=== PATIENT | female | born 1945 | race Asian ===

== ENCOUNTER 2017-06-30 16:04 | Emergency (ER) | payer MEDICARE ==
[~2017-06-30] VITALS: Ht 149.9 cm; Wt 57.6 kg
[~2017-06-30 16:04] MED LIST: ASPI1CPM9 PO; ATEN50TA41 PO; ATOR-2 PO; ATOR40TA78 PO; CYCL7.5T25 PO; HYDR1TAB16 PO; IBUP200C8 PO; NAPR220C2 PO; OXYC1TAB7 PO; TEMA15CA PO; TEMA7.5C PO; [UNRECOGNIZED DRUG - REMARK]
[2017-06-30 16:44] LABS: BASOPHILS # (AUTO) 0.03 x10^3/uL (0-0.1); BASOPHILS % (AUTO) 0 % (0-1); EOSINOPHILS # (AUTO) 0.07 x10^3/uL (0-0.4); EOSINOPHILS % (AUTO) 1 % (1-7); LYMPHOCYTES # (AUTO) 1.15 x10^3/uL (1-3.4); LYMPHOCYTES % (AUTO) 11 % (22-44); MD NO; MEAN CORPUSCULAR HEMOGLOBIN 22.5 pg (27.0-34.8); MEAN CORPUSCULAR VOLUME 70.4 fL (80-100); MEAN PLATELET VOLUME 8.1 fL (7.4-10.4); MONOCYTES # (AUTO) 0.41 x10^3/uL (0.2-0.8); MONOCYTES % (AUTO) 4 % (2-9); NEUTROPHILS # (AUTO) 8.98 x10^3/uL (1.8-6.8); NEUTROPHILS % (AUTO) 84 % (42-75); PLATELET COUNT 304 x10^3/uL (130-400); RED BLOOD COUNT 6.15 x10^6/uL (3.82-5.3); RED CELL DISTRIBUTION WIDTH 15.4 % (9.6-15.2)
[2017-06-30 16:55] LABS: ALANINE AMINOTRANSFERASE 36 U/L (12-78); ALBUMIN 4.3 g/dL (3.4-5.0); ANION GAP 10 mmol/L (5-15); CALCIUM 9.1 mg/dL (8.5-10.1); CHLORIDE 101 mmol/L (98-107); CREATININE 0.81 mg/dL (0.55-1.02)
[2017-06-30 16:57] LABS: ALKALINE PHOSPHATASE 83 U/L (45-117); BILIRUBIN,TOTAL 0.3 mg/dL (0.2-1.0); TOTAL PROTEIN 9.1 g/dL (6.4-8.2)
[2017-06-30 18:06] LABS: MICROSCOPIC AUTO
[2017-06-30 18:07] LABS: CULTURE INDICATED? NO
[2017-06-30] MEDS ORDERED: ACETAMINOPHEN 325 MG TABLET ONE (19:18)
[2017-06-30] MEDS ORDERED: TRAZ300T2 PO (19:26)
[2017-06-30] MEDS ORDERED: ACETAMINOPHEN 325 MG TABLET PO ONE (19:30)
[2017-06-30 21:15] VITALS: BP 109/73
== END 2017-06-30 21:17 | disposition home or self-care (01) ==
LOC: ED 21:01
DX: R33.9 Retention of urine, unspecified (principal); E78.5 Hyperlipidemia, unspecified; I10 Essential (primary) hypertension
CPT/HCPCS: 36415; 51702; 74018; 80053; 81001; 85025; 99285

== ENCOUNTER 2017-07-01 13:29 | Emergency (ER) | payer MEDICARE ==
[~2017-07-01] VITALS: Ht 149.9 cm; Wt 55.4 kg
[~2017-07-01 13:29] MED LIST changes: +TRAZ300T2 PO
[2017-07-01 13:43] VITALS: BP 133/82
== END 2017-07-01 13:58 | disposition left against medical advice (07) ==
LOC: ED 13:52
DX: Z46.6 Encounter for fitting and adjustment of urinary device (principal); Z53.21 Procedure and treatment not carried out due to patient leaving prior to being seen by health care provider

== ENCOUNTER 2017-07-02 18:19 | Emergency (ER) | payer MEDICARE ==
[~2017-07-02] VITALS: Ht 149.9 cm; Wt 57.0 kg
[2017-07-02 18:23] VITALS: BP 146/84
[2017-07-02] MEDS ORDERED: KETOROLAC 30 MG/1 ML IM ONE (19:00)
[2017-07-02 19:07] LABS: ALBUMIN 3.9 g/dL (3.4-5.0); ANION GAP 6 mmol/L (5-15); CALCIUM 8.3 mg/dL (8.5-10.1); CHLORIDE 105 mmol/L (98-107)
[2017-07-02 19:09] LABS: CULTURE INDICATED? YES; MICROSCOPIC INDICATED
[2017-07-02 19:12] LABS: ALANINE AMINOTRANSFERASE 26 U/L (12-78); ALKALINE PHOSPHATASE 66 U/L (45-117); BILIRUBIN,TOTAL 0.3 mg/dL (0.2-1.0); CREATININE 0.81 mg/dL (0.55-1.02); TOTAL PROTEIN 8.1 g/dL (6.4-8.2)
[2017-07-02 19:31] LABS: BASOPHILS # (AUTO) 0.01 x10^3/uL (0-0.1); BASOPHILS % (AUTO) 0 % (0-1); EOSINOPHILS # (AUTO) 0.17 x10^3/uL (0-0.4); EOSINOPHILS % (AUTO) 2 % (1-7); LYMPHOCYTES # (AUTO) 1.19 x10^3/uL (1-3.4); LYMPHOCYTES % (AUTO) 17 % (22-44); MD NO; MEAN CORPUSCULAR HEMOGLOBIN 22.7 pg (27.0-34.8); MEAN CORPUSCULAR VOLUME 70.9 fL (80-100); MEAN PLATELET VOLUME 8.2 fL (7.4-10.4); MONOCYTES # (AUTO) 0.77 x10^3/uL (0.2-0.8); MONOCYTES % (AUTO) 11 % (2-9); NEUTROPHILS # (AUTO) 4.93 x10^3/uL (1.8-6.8); NEUTROPHILS % (AUTO) 70 % (42-75); PLATELET COUNT 278 x10^3/uL (130-400); RED BLOOD COUNT 5.64 x10^6/uL (3.82-5.3); RED CELL DISTRIBUTION WIDTH 14.8 % (9.6-15.2)
[2017-07-02] MEDS ORDERED: KETOROLAC 30 MG/1 ML ONE (19:43)
[2017-07-02] MEDS ORDERED: OMNIPAQUE 350 MG/ML, 100ML BOTTLE ONE (19:56)
== END 2017-07-02 22:34 | disposition home or self-care (01) ==
LOC: ED 18:58
DX: R31.0 Gross hematuria (principal); R33.9 Retention of urine, unspecified; I10 Essential (primary) hypertension; E78.5 Hyperlipidemia, unspecified; Z90.710 Acquired absence of both cervix and uterus; Z90.10 Acquired absence of unspecified breast and nipple
CPT/HCPCS: 36415; 74176; 80053; 81001; 85025; 87086; 96372; 99285; J1885; Q9967

== ENCOUNTER 2017-10-05 21:18 | Emergency (ER) | payer MEDICARE ==
[~2017-10-05] VITALS: Ht 152.4 cm; Wt 57.0 kg
[2017-10-05 22:26] LABS: MICROSCOPIC AUTO
[2017-10-05 22:28] LABS: CULTURE INDICATED? YES
[2017-10-05 22:33] LABS: ANION GAP 7 mmol/L (5-15); CALCIUM 8.8 mg/dL (8.5-10.1); CHLORIDE 107 mmol/L (98-107); CREATININE 0.91 mg/dL (0.55-1.02)
[2017-10-05 22:34] LABS: BASOPHILS % (AUTO) 0 % (0-1); EOSINOPHILS # (AUTO) 0.29 x10^3/uL (0-0.4); EOSINOPHILS % (AUTO) 5 % (1-7); LYMPHOCYTES # (AUTO) 1.43 x10^3/uL (1-3.4); LYMPHOCYTES % (AUTO) 25 % (22-44); MD NO; MEAN CORPUSCULAR HEMOGLOBIN 22.5 pg (27.0-34.8); MEAN CORPUSCULAR HGB CONC 32.2 g/dL (32.4-35.8); MEAN CORPUSCULAR VOLUME 69.8 fL (80-100); MEAN PLATELET VOLUME 8.3 fL (7.4-10.4); MONOCYTES # (AUTO) 0.53 x10^3/uL (0.2-0.8); MONOCYTES % (AUTO) 9 % (2-9); NEUTROPHILS # (AUTO) 3.56 x10^3/uL (1.8-6.8); NEUTROPHILS % (AUTO) 61 % (42-75); PLATELET COUNT 285 x10^3/uL (130-400); RED BLOOD COUNT 5.84 x10^6/uL (3.82-5.3); RED CELL DISTRIBUTION WIDTH 15.1 % (9.6-15.2)
[2017-10-05 22:35] VITALS: BP 157/91
[2017-10-05 22:37] LABS: TROPONIN I < 0.015 ng/mL (0.000-0.045)
[2017-10-05] MEDS ORDERED: DIAZEPAM 5 MG TABLET ONE (23:20)
[2017-10-05] MEDS ORDERED: ACETAMINOPHEN 325 MG TABLET ONE (23:20)
[2017-10-05] MEDS ORDERED: DIAZEPAM 5 MG TABLET PO ONE (23:30)
[2017-10-05] MEDS ORDERED: ACETAMINOPHEN 325 MG TABLET PO ONE (23:30)
== END 2017-10-05 23:42 | disposition home or self-care (01) ==
LOC: ED 23:36
DX: M47.892 Other spondylosis, cervical region (principal); R51 Headache; Z86.73 Personal history of transient ischemic attack (TIA), and cerebral infarction without residual deficits; E78.5 Hyperlipidemia, unspecified; I10 Essential (primary) hypertension
CPT/HCPCS: 36415; 71045; 72050; 80048; 81001; 82040; 84484; 85025; 87086; 93005; 99285

== ENCOUNTER 2018-07-03 09:33 | Emergency (ER) | payer MEDICARE ==
[~2018-07-03] VITALS: Ht 149.9 cm; Wt 55.0 kg
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
[2018-07-03] MEDS ORDERED: NITROGLYCERIN SINGLE TAB 0.4 MG SL ONE (09:44)
--- NOTE | 2018-07-03 09:50 | NUR ---
NTG GIVEN, PT PAIN IS NOW 4/10
[2018-07-03] MEDS ORDERED: NITROGLYCERIN SINGLE TAB 0.4 MG SL PRN (10:00)
[2018-07-03] MEDS ORDERED: SODIUM CHLORIDE FLUSH 10ML SYR IVF ONE (10:00)
[2018-07-03 10:04] LABS: BASOPHILS # (AUTO) 0.05 x10^3/uL (0-0.1); BASOPHILS % (AUTO) 1 % (0-1); EOSINOPHILS # (AUTO) 0.27 x10^3/uL (0-0.4); EOSINOPHILS % (AUTO) 6 % (1-7); LYMPHOCYTES # (AUTO) 0.99 x10^3/uL (1-3.4); LYMPHOCYTES % (AUTO) 22 % (22-44); MD NO; MEAN CORPUSCULAR HEMOGLOBIN 22.8 pg (27.0-34.8); MEAN CORPUSCULAR HGB CONC 32.5 g/dL (32.4-35.8); MEAN CORPUSCULAR VOLUME 70.2 fL (80-100); MEAN PLATELET VOLUME 8.4 fL (7.4-10.4); MONOCYTES # (AUTO) 0.45 x10^3/uL (0.2-0.8); MONOCYTES % (AUTO) 10 % (2-9); NEUTROPHILS # (AUTO) 2.78 x10^3/uL (1.8-6.8); NEUTROPHILS % (AUTO) 61 % (42-75); PLATELET COUNT 270 x10^3/uL (130-400); RED BLOOD COUNT 5.93 x10^6/uL (3.82-5.3); RED CELL DISTRIBUTION WIDTH 15.3 % (9.6-15.2)
[2018-07-03 10:15] LABS: INTERNATIONAL NORMALIZED RATIO 0.96 (0.93-1.1); PROTHROMBIN TIME 10.1 Seconds (9.6-11.5)
[2018-07-03 10:17] LABS: ALANINE AMINOTRANSFERASE 33 U/L (12-78); ALBUMIN 3.5 g/dL (3.4-5.0); ANION GAP 7 mmol/L (5-15); CALCIUM 8.2 mg/dL (8.5-10.1); CHLORIDE 109 mmol/L (98-107); CREATININE 0.79 mg/dL (0.55-1.02)
--- NOTE | 2018-07-03 10:18 | NUR ---
PT GETTING AN ULTRASOUND IN ROOM.
[2018-07-03 10:21] LABS: ALKALINE PHOSPHATASE 75 U/L (45-117); BILIRUBIN,TOTAL 0.3 mg/dL (0.2-1.0); TOTAL PROTEIN 7.1 g/dL (6.4-8.2); TROPONIN I < 0.015 ng/mL (0.000-0.045)
[2018-07-03 11:03] VITALS: BP 135/84
[2018-07-03] MEDS ORDERED: SODIUM CHLORIDE FLUSH 10ML SYR IVF PRN (11:30)
--- NOTE | 2018-07-03 12:51 | NUR ---
DR. MONTILLA AWARE
--- NOTE | 2018-07-03 12:51 | NUR ---
PT REFUSING TO BE ADMITTED, PULLED OWN IV OUT. AMA PAPERWORK GIVEN.
== END 2018-07-03 12:53 | disposition home or self-care (01) ==
LOC: ED 10:14 → UNDOADMIN 11:15 → EDIP 11:15 → 5SO 23:53 → EDIP 23:53 → UNDODISIN 07-04 05:29
DX: I20.9 Angina pectoris, unspecified (principal); I10 Essential (primary) hypertension; E78.5 Hyperlipidemia, unspecified; Z86.73 Personal history of transient ischemic attack (TIA), and cerebral infarction without residual deficits; Z90.10 Acquired absence of unspecified breast and nipple
CPT/HCPCS: 36415; 71045; 80053; 83880; 84484; 85025; 85610; 85730; 93005; 99284; 99285; G0378

== ENCOUNTER 2020-04-26 15:56 | Emergency (ER) | payer MEDICARE ==
[~2020-04-26] VITALS: Ht 149.9 cm; Wt 66.5 kg
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
--- NOTE | 2020-04-26 16:29 | NUR ---
PT HAS ALL MONITORING IN PLACE, NADN AT THIS TIME, WCTM. CALL LIGHT WITHIN REACH, PT STATES NO NEEDS AT THIS TIME.
[2020-04-26] MEDS ORDERED: LABETALOL 5MG/ML, 20ML ONE (17:16)
[2020-04-26 17:25] LABS: BASOPHILS % (AUTO) 1 % (0-1); EOSINOPHILS % (AUTO) 3 % (1-7); LYMPHOCYTES % (AUTO) 21 % (22-44); MD NO; MEAN CORPUSCULAR HEMOGLOBIN 22.7 pg (27.0-34.8); MEAN CORPUSCULAR HGB CONC 32.7 g/dL (32.4-35.8); MONOCYTES % (AUTO) 9 % (2-9); NEUTROPHILS % (AUTO) 67 % (42-75); PLATELET COUNT 258 x10^3/uL (130-400); RED BLOOD COUNT 6.21 x10^6/uL (3.82-5.3); RED CELL DISTRIBUTION WIDTH 15.5 % (9.6-15.2)
[2020-04-26 17:35] LABS: ALBUMIN 3.4 g/dL (3.4-5.0); ANION GAP 7 mmol/L (5-15); CALCIUM 8.5 mg/dL (8.5-10.1); CHLORIDE 106 mmol/L (98-107); CREATININE 1.01 mg/dL (0.55-1.02)
[2020-04-26 17:38] LABS: TROPONIN I < 0.015 ng/mL (0.000-0.045)
[2020-04-26 17:43] VITALS: BP 149/99
[2020-04-26] MEDS ORDERED: SODIUM CHLORIDE FLUSH 10ML SYR IVF ONE (18:00)
[2020-04-26] MEDS ORDERED: LABETALOL 5MG/ML, 20ML IVPush ONE (18:00)
== END 2020-04-26 18:16 | disposition home or self-care (01) ==
LOC: ED 18:10
DX: I10 Essential (primary) hypertension (principal); R07.89 Other chest pain; E78.5 Hyperlipidemia, unspecified; Z85.3 Personal history of malignant neoplasm of breast; Z90.10 Acquired absence of unspecified breast and nipple; Z86.73 Personal history of transient ischemic attack (TIA), and cerebral infarction without residual deficits; Z90.710 Acquired absence of both cervix and uterus
CPT/HCPCS: 36415; 71045; 80048; 82040; 84484; 85025; 93005; 96374; 99285